=== PATIENT | male | born 1945 ===

== ENCOUNTER 2016-11-24 06:45 | Day surgery (SDC) | payer MEDICARE, MEDICAID ==
[2016-11-13 09:28] VITALS: BMI 25.0
[2016-11-24] MEDS ORDERED: ceFAZolin IV 1 gm in Dextrose 0 GM/0 ML BAG IVPB ONE (07:36)
[2016-11-24] MEDS ORDERED: Bupivacaine HCl 0.25% PF (10 ml) Inj ONE (07:36)
[2016-11-24] MEDS ORDERED: Lidocaine 1% Inj (20ml) ONE (07:37)
[2016-11-24] MEDS ORDERED: Bupivacaine/Epi 0.25%-1:200,000 10 ml PF inj IJ ONE (07:37)
[2016-11-24] MEDS ORDERED: Lactated Ringer's 1,000 ML IV ONE ×2 (08:25→11:08)
[2016-11-24] MEDS ORDERED: Propofol 10 mg/ml Inj (20 ML) ONE (08:32)
[2016-11-24] MEDS ORDERED: Midazolam 2 MG/2 ML VIAL ONE (08:32)
[2016-11-24] MEDS ORDERED: ceFAZolin IV 2 gm in Dextrose 1 GM/50 ML BAG IVPB ONE (08:34)
[2016-11-24] MEDS ORDERED: Rocuronium 10 mg/ml (5 ml) ONE (08:34)
[2016-11-24] MEDS ORDERED: Lidocaine Hydrochloride 5 ML INJ ONE (08:35)
[2016-11-24] MEDS ORDERED: ePHEDrine 50 mg/ml Inj ONE (09:28)
[2016-11-24] MEDS ORDERED: Neostigmine Methylsulfate 3mg/3ml Syringe IV ONE (09:46)
[2016-11-24] MEDS ORDERED: HYDROmorphone 0.5 mg/0.5 ml ISec IVP PRN (11:30)
--- NOTE | 2016-11-24 11:52 | PCM.SURG1 ---
Surgeon's Initial Post Op Note - Surgeon's Notes Surgeon: Luca [employer]: [place] PGY2 Type of Anesthesia: General Endo Pre-Operative Diagnosis: Multiple lipomas B/L UE Operative Findings: 34 Lipomas B/L UE Post-Operative Diagnosis: same Operation Performed: excision of lipomas Specimen/Specimens Removed: lipomas Estimated Blood Loss: EBL {In ML}: 50 Blood Products Given: N/A Drains Used: No Drains Post-Op Condition: Good Date of Surgery/Procedure: 11/24/16 Time of Surgery/Procedure: 11:52
[2016-11-24] MEDS ORDERED: Oxycodone/Acetaminophen 5/325 mg Tab PO PRN (11:55)
[2016-11-24 15:06] VITALS: BP 152/75; PULSE 85; RESP 16; TEMP 97.1; O2SAT 100
--- NOTE | 2016-11-25 17:27 | OP ---
PROCEDURE DATE: 11/24/2016 PREOPERATIVE DIAGNOSIS: Multiple lipomas of upper extremity. POSTOPERATIVE DIAGNOSIS: Multiple lipomas of bilateral upper extremity; 34 lipomas, 22 on right side and 12 on the left side. PROCEDURES: Excision of multiple lipomas of bilateral upper extremities, 34 total; 22 on the right side and 12 on the left side. 1. Excision of the lipomas of the right forearm, anterior upper 2x2 cm 2. Excision of the lipoma Right forearm anterior lower 2x2 cm 3. Excision of the lipoma Right forearm lateral lower one. 2x2 cm 4. Excision of the lipoma Right forearm lateral upper. 4x3 cm 5. Excision of the lipoma Right forearm posterior lower, 1. 2x2 cm 6. Excision of the lipoma Right forearm posterior medial, 1. 2x2 cm 7. Excision of the lipoma Right forearm lateral lower, 2. 4x3 cm 8. Excision of the lipoma Right forearm posterior upper, 1. 2x2 cm 9. Excision of the lipomaRight elbow lateral. 3x3 cm 10. Excision of the lipoma Right forearm lateral. 2x2 cm 11. Excision of the lipoma Right forearm posterior lower, 2. 2x2 cm 12. Excision of the lipoma Right forearm posterior medial, 2. 2x2 cm 13. Excision of the lipoma Right forearm posterior upper, 2. 2x2 cm 14. Excision of the lipoma Right forearm posterior medial, 3. 2x2 cm 15. Excision of the lipoma Right forearm posterior medial, 4. 2x2 cm 16. Excision of the lipoma Right forearm posterior lower, 3. 2x3 cm 17. Excision of the lipoma Right forearm posterior upper, 3. 2x2 cm 18. Excision of the lipoma Right forearm posterior medial, 5. 3x3 cm 19. Excision of the lipoma Right elbow medial, 1. 4x3 cm 20. Excision of the lipoma Right elbow medial, 2. 3x3 cm 21. Excision of the lipoma Right elbow medial, 3. 4x4 cm 22. Excision of the lipoma Right elbow medial, 4. 3x2 cm On the left side is: 1. Excision of the lipoma Left forearm medial lower. 2x2 cm 2. Excision of the lipoma Left forearm medial upper. 2x2 cm 3. Excision of the lipoma Left forearm posterior. 2x3 cm 4. Excision of the lipoma Left forearm posterior, 1. 2x2 cm 5. Excision of the lipoma Left elbow medial, 1. 4x3 cm 6. Excision of the lipoma Left elbow medial, 2. 3x3 cm 7. Excision of the lipoma Left forearm lateral lower. 2x2 cm 8. Excision of the lipoma Left forearm lateral upper. 2x2 cm 9. Excision of the lipoma Left forearm medial. 3x4 cm 10. Excision of the lipoma Left arm anterior. 2x2 cm 11. Excision of the lipoma Left arm posterior lower. 4x3 cm 12. Excision of the lipoma Left elbow lateral upper. 3x3 cm SURGEON: Dr. Dandy Segovia. SCIENTIFIC ILLUSTRATOR: Javed Escobedo, PGY-1 resident. ANESTHESIA: General endotracheal tube anesthesia. ESTIMATED BLOOD LOSS: Around 50 mL. DRAINS: None. PATHOLOGY: All the lipomas were sent separately. There were 34 samples. COMPLICATIONS: None. INTRAOPERATIVE FINDINGS: The patient had multiple lipomas of the bilateral upper extremities. INTRAOPERATIVE STEPS: This 71-year-old male was diagnosed with multiple lipomas of upper extremities and patient was symptomatic from the lipomas and had pain while working, and patient was consented for the excision of the lipomas of the upper extremities bilaterally. Brought to the OR, placed supine on the operating table. After induction of the anesthesia, both upper extremities were prepped and draped in a usual sterile fashion and the posterior right-sided lipomas were excised. The right forearm, anterior multiple, lateral multiple, posterior multiple, right elbow multiple lipomas were excised and they were all sent separately. There was a total of 22 lipomas on the right side and all the wounds were irrigated out. All the wounds were closed in 2 layers, subcutaneous with a 3-0 Vicryl, skin with a 4-0 Monocryl, and now the left-sided lipomas were excised. The left forearm medial, left forearm posterior, left elbow multiple lipomas, and the left arm multiple lipomas were excised. After multiple incisions, patient had a total of 12 lipomas on the left side, and all the wounds were irrigated and wounds were closed in 2 layers, the subcutaneous with a 2-0 Vicryl, skin with a 4-0 Monocryl, and dry sterile dressing was applied. The patient tolerated the procedure well. Count of instruments and gauze was correct. There was no apparent complication. The patient was extubated in the OR, sent to the postanesthesia care unit in stable condition. Dandy Segovia MD cc: [id number] TT: 11/25/2016 17:25:50 dn MTDD
== END 2016-11-24 15:10 | disposition home or self-care (01) ==
LOC: C.SDS 06:45
PROVIDERS: ATTEND Surgery Surgical Critical Care
DX: D17.22 Benign lipomatous neoplasm of skin and subcutaneous tissue of left arm (principal); D17.21 Benign lipomatous neoplasm of skin and subcutaneous tissue of right arm; L72.0 Epidermal cyst
CPT/HCPCS: 11406; 88304; J0690; J1100; J1170; J2250; J2405; J2704; J2710; J2765; J3010; J7120

== ENCOUNTER 2018-10-23 12:25 | Observation (INO) | payer MEDICARE, MEDICAID ==
[2018-10-23 12:25] VITALS: BMI 25.0
[2018-10-23] MEDS ORDERED: Sodium Chloride 0.9% 500 ML IV ONE ×2 (12:51→13:02)
--- NOTE | 2018-10-23 12:58 | C.PDOC ---
History Of Present Illness 73 year old male with PMHx of HTN and gastritis was sent by Dr. Funes to rule out appendicitis. The patient reports lower abdominal pain radiating to the lower back for 2 days associated with chills and constipation. Denies nausea, vomiting, diarrhea, and any other associated symptoms. Time Seen by Provider: 10/23/18 12:37 Chief Complaint (Nursing): Abdominal Pain History Per: Patient History/Exam Limitations: no limitations Onset/Duration Of Symptoms: Days (x2) Current Symptoms Are (Timing): Still Present Location Of Pain/Discomfort: RLQ, LLQ, Other (umbilical region.) Radiation Of Pain To:: Back Quality Of Discomfort: "Pain" Associated Symptoms: Chills, Constipation. denies: Nausea, Vomiting, Diarrhea Exacerbating Factors: Movement Alleviating Factors: None Recent travel outside of the [place]: No Past Medical History Reviewed: Historical Data, Nursing Documentation, Vital Signs Vital Signs: Last Vital Signs Temp 97.8 F 10/23/18 12:42 Pulse 90 10/23/18 12:42 Resp 18 10/23/18 12:42 BP 165/88 H 10/23/18 12:42 Pulse Ox 100 10/23/18 12:42 - Medical History PMH: HTN Denies: Chronic Kidney Disease Surgical History: Endoscopy - [facility] Procedures EXCISION OF LOWER ESOPHAGUS, ENDO, DIAGN (05/18/16) EXCISION OF MIDDLE ESOPHAGUS, ENDO, DIAGN (05/18/16) EXCISION OF STOMACH, ENDO, DIAGN (05/18/16) Family History: States: Unknown Family Hx - Social History Hx Alcohol Use: No Hx Substance Use: No - Immunization History Hx Tetanus Toxoid Vaccination: No Hx Influenza Vaccination: Yes (05/2016) Hx Pneumococcal Vaccination: No Review Of Systems Except As Marked, All Systems Reviewed And Found Negative. Constitutional: Positive for: Chills Gastrointestinal: Positive for: Abdominal Pain, Constipation. Negative for: Nausea, Vomiting, Diarrhea Musculoskeletal: Positive for: Back Pain (lower. ) Physical Exam - Physical Exam Appears: Non-toxic, No Acute Distress Skin: Warm, Dry Eye(s): bilateral: Normal Inspection Oral Mucosa: Moist Neck: Normal ROM, Supple Chest: Symmetrical, No Deformity Cardiovascular: Rhythm Regular, No Murmur Respiratory: Normal Breath Sounds, No Rales, No Rhonchi, No Wheezing Gastrointestinal/Abdominal: Soft, Tenderness (to lower left, umbilical, and lower right abdomen (worse).) Extremity: Bilateral: Atraumatic, Normal Color And Temperature, Normal ROM Neurological/Psych: Oriented x3, Normal Speech, Normal Cognition ED Course And Treatment - Laboratory Results Result Diagrams: 10/23/18 12:55 10/23/18 12:55 O2 Sat by Pulse Oximetry: 100 (RA) Pulse Ox Interpretation: Normal - Other Rad Obstructive Series X-Ray: Viewed By Me, Read By Radiologist Interpretation: FINDINGS: CHEST: Lungs: Clear. Cardiovascular: Normal size heart. No pulmonary vascular congestion. No aortic atherosclerotic calcification present. Pleura: No pleural fluid. No pneumothorax. Other findings: None. ABDOMEN AND PELVIS: Bowel: Mild constipation noted, otherwise unremarkable bowel gas pattern. No evidence of mechanical obstruction. Free air: None. Bones: Unremarkable. Other findings: None. IMPRESSION: Mild constipation noted, otherwise unremarkable radiographs of chest and abdomen. No evidence of mechanical bowel obstruction. - CT Scan/US CT ABD & Pelvis Other Rad Studies (CT/US): Interpreted By Me, Read By Radiologist CT/US Interpretation: FINDINGS: LOWER THORAX: Unremarkable. LIVER: Hepatic steatosis is noted. GALLBLADDER AND BILE DUCTS: Unremarkable. PANCREAS: Unremarkable. No gross lesion or ductal dilatation. SPLEEN: Unremarkable. AD RENALS: Unremarkable. No mass. KIDNEYS AND URETERS: Unremarkable. No hydronephrosis. No solid mass. VASCULATURE: Unremarkable. No aortic aneurysm. Small foci of atherosclerotic calcification in the abdominal aorta and iliac arteries noted. BOWEL: Unremarkable. No obstruction. No gross mural t hickening. APPENDIX: The appendix is enlarged demonstrate diffuse thick wall and surrounding with market inflammatory changes consistent with acute appendicitis. No evidence of perforation or abscess formation. PERITONEUM: Unremarkable. No free fluid. No free air. LYMPH NODES: Unremarkable. No enlarged lymph nodes. BLADDER: Unremarkable. REPRODUCTIVE: Unremarkable. BONES: No acute fracture. OTHER FINDINGS: None. IMPRESSION: Findings consistent with acute appendicitis. No evidence of free air or abscess formation. Medical Decision Making Medical Decision Making: Initial Plan: -CT ABD & Pelvis w/ IV contrast -Blood sent. -Obstructive series -Urinalysis Progress/Update: Spoke with Dr. Funes. Spoke with Luca who was informed that the pt has acute appendicitis. Pt to be prepped and bank president informed. Dr. Segovia requests pt is admitted to medical service. Disposition Discussed With : Ale Funes - Disposition Disposition: HOSPITALIZED Disposition Time: 15:36 Condition: GUARDED Forms: [facility] (Japanese) - Clinical Impression Clinical Impression: Acute appendicitis - Scribe Statement The provider has reviewed the documentation as recorded by the Scribe (Salma Kenney) Provider Attestation: All medical record entries made by the Scribe were at my direction and personally dictated by me. I have reviewed the chart and agree that the record accurately reflects my personal performance of the history, physical exam, medical decision making, and the department course for this patient. I have also personally directed, reviewed, and agree with the discharge instructions and disposition. Decision To Admit - Pt Status Changed To: Hospital Disposition Of: Observation - . Bed Request Type: Regular Patient Diagnosis: Acute appendicitis
[2018-10-23 12:59] LABS: BASO # 0.1 K/uL (0.0-0.2); BASO % 0.6 % (0.0-2.0); EOS # 0.1 K/uL (0.0-0.7); EOS % 0.8 % (0.0-4.0); HEMOGLOBIN 14.4 g/dL (12.0-18.0); LYMPH # 1.6 K/uL (1.0-4.3); LYMPH % 16.7 % (20.0-40.0); MEAN CORPUSCULAR HEMOGLOBIN 30.7 pg (27.0-31.0); MEAN CORPUSCULAR HGB CONC 33.5 g/dL (33.0-37.0); MEAN PLATELET VOLUME 8.2 fL (7.2-11.7); MONO # 0.9 K/uL (0.0-0.8); NEUT # 7.2 K/uL (1.8-7.0); NEUT % 72.9 % (50.0-75.0); RBC 4.7 Mil/uL (4.40-5.90); RED CELL DISTRIBUTION WIDTH 13.9 % (11.5-14.5)
[2018-10-23] MEDS ORDERED: Iohexol 240 (50 ml) ONE (13:01)
[2018-10-23 13:02] LABS: MEAN CELL VOLUME 91.5 fL (80.0-94.0); URINE BILIRUBIN NEGATIVE (NEGATIVE); URINE BLOOD NEGATIVE (NEGATIVE); URINE CLARITY Clear (Clear); URINE COLOR Yellow (YELLOW); URINE GLUCOSE (UA) NORMAL (Normal); URINE LEUKOCYTE ESTERASE NEG Leu/uL (Negative); URINE PROTEIN NEGATIVE (NEGATIVE); URINE UROBILINOGEN NORMAL mg/dL (0.2-1.0); WHITE BLOOD COUNT 9.8 K/uL (4.8-10.8)
[2018-10-23 13:14] LABS: ALB/GLOB RATIO 1.4 (1.0-2.1); ALBUMIN 4.5 g/dL (3.5-5.0); ALT/SGPT 18 U/L (21-72); AST/SGOT 32 U/L (17-59); BLOOD UREA NITROGEN 14 mg/dL (9-20); CALCIUM 9.2 mg/dl (8.6-10.4); GFR NON-AFRICAN AMERICAN > 60; LIPASE 81 U/L (23-300)
[2018-10-23 13:24] LABS: B-TYPE NATRIURETIC PEPTIDE 66.2 pg/mL (0-900)
[2018-10-23] MEDS ORDERED: Iodixanol 320 mg/ml 150 ml Bottle IV ONE (14:19)
--- NOTE | 2018-10-23 14:28 | RAD ---
Date of service: 10/23/2018 PROCEDURE: Radiographs of the chest and abdomen (obstructive series) HISTORY: abd pain COMPARISON: No prior. TECHNIQUE: AP radiograph of the chest, with upright and supine radiographs of the abdomen. 3 views obtained. FINDINGS: CHEST: Lungs: Clear. Cardiovascular: Normal size heart. No pulmonary vascular congestion. No aortic atherosclerotic calcification present Pleura: No pleural fluid. No pneumothorax. Other findings: None. ABDOMEN AND PELVIS: Bowel: Mild constipation noted, otherwise unremarkable bowel gas pattern. No evidence of mechanical obstruction. Free air: None. Bones: Unremarkable. Other findings: None. IMPRESSION: Mild constipation noted, otherwise unremarkable radiographs of chest and abdomen. No evidence of mechanical bowel obstruction.
--- NOTE | 2018-10-23 15:32 | CT ---
Date of service: 10/23/2018 PROCEDURE: CT Abdomen and Pelvis with contrast HISTORY: abd pain COMPARISON: None. TECHNIQUE: Contrast dose: 100 mL of Visipaque 320 intravenously. Axial and reformatted coronal and sagittal CT images of the abdomen and pelvis were obtained after IV and oral contrast administration. Radiation dose: Total exam DLP = 568.41 mGy-cm. This CT exam was performed using one or more of the following dose reduction techniques: Automated exposure control, adjustment of the mA and/or kV according to patient size, and/or use of iterative reconstruction technique. FINDINGS: LOWER THORAX: Unremarkable. LIVER: Hepatic steatosis is noted. GALLBLADDER AND BILE DUCTS: Unremarkable. PANCREAS: Unremarkable. No gross lesion or ductal dilatation. SPLEEN: Unremarkable. ADRENALS: Unremarkable. No mass. KIDNEYS AND URETERS: Unremarkable. No hydronephrosis. No solid mass. VASCULATURE: Unremarkable. No aortic aneurysm. Small foci of atherosclerotic calcification in the abdominal aorta and iliac arteries noted. BOWEL: Unremarkable. No obstruction. No gross mural thickening. APPENDIX: The appendix is enlarged demonstrate diffuse thick wall and surrounding with market inflammatory changes consistent with acute appendicitis. No evidence of perforation or abscess formation. PERITONEUM: Unremarkable. No free fluid. No free air. LYMPH NODES: Unremarkable. No enlarged lymph nodes. BLADDER: Unremarkable. REPRODUCTIVE: Unremarkable. BONES: No acute fracture. OTHER FINDINGS: None. IMPRESSION: Findings consistent with acute appendicitis. No evidence of free air or abscess formation.
--- NOTE | 2018-10-23 15:51 | CP.PCM.CON ---
<Cristóbal Allen - Last Filed: 10/23/18 16:37> History of Present Illness - History of Present Illness History of Present Illness: General Surgery Note for Dr. Segovia Reason for consult: Acute appendicitis 73 M with PMH of HTN and GERD presents to [facility], [place] for complaint of lower abdominal pain. Patient was seen and evaluated in the ED. Patient state sthat abd pain started 2 days ago. He states the pain began in the lower abdomen then migrated to RLQ. He report sudden onset and states it has gotten progressively worse. Admits to associated nausea and anorexia but denies fever/chills and diarrhea. He describes pain as severe, sharp and constant. Eating/drinking aggravates symptoms while nothing alleviates them. Denies cp, SOB, numbness/tingling, incontinence, urinary symptoms. PMH: HTN, GERD PSH: Lipoma removals bilateral UEs ALL: NKDA Review of Systems - Review of Systems All systems: reviewed and no additional remarkable complaints except (as per HPI) Past Patient History - Infectious Disease Hx of Infectious Diseases: None - Past Medical History & Family History Past Medical History?: Yes - Past Social History Smoking Status: Never Smoked - CARDIAC Hx Hypertension: Yes - PULMONARY Hx Respiratory Disorders: No - NEUROLOGICAL Hx Neurological Disorder: No - HEENT Hx HEENT Problems: No - RENAL Hx Chronic Kidney Disease: No - ENDOCRINE/METABOLIC Hx Endocrine Disorders: No - HEMATOLOGICAL/ONCOLOGICAL Hx Blood Disorders: No - INTEGUMENTARY Hx Dermatological Problems: Yes Other/Comment: HX: LIPOMAS - MUSCULOSKELETAL/RHEUMATOLOGICAL Hx Musculoskeletal Disorders: No Hx Falls: No - GASTROINTESTINAL Hx Gastrointestinal Disorders: Yes Hx Gastroesophageal Reflux: Yes - GENITOURINARY/GYNECOLOGICAL Hx Genitourinary Disorders: No - PSYCHIATRIC Hx Substance Use: No - SURGICAL HISTORY Other/Comment: HX: LIPOMA EXCISIONS - ANESTHESIA Hx Anesthesia: Yes Meds Allergies/Adverse Reactions: Allergies Allergy/AdvReac Type Severity Reaction Status Date / Time No Known Allergies Allergy Verified 06/16/16 08:20 Physical Exam - Constitutional Appears: Non-toxic, No Acute Distress - Head Exam Head Exam: ATRAUMATIC, NORMOCEPHALIC - Eye Exam Eye Exam: EOMI, Normal appearance Pupil Exam: PERRL - ENT Exam ENT Exam: Mucous Membranes Moist - Neck Exam Neck exam: Positive for: Full Rom - Respiratory Exam Respiratory Exam: NORMAL BREATHING PATTERN - Cardiovascular Exam Cardiovascular Exam: REGULAR RHYTHM - GI/Abdominal Exam GI & Abdominal Exam: Distended (mild), Guarding (voluntary), Normal Bowel Sounds, Soft, Tenderness (RLQ). absent: Firm, Hernia, Mass, Rebound, Rigid Additional comments: +mcburney's point +rovsing sign - Rectal Exam Rectal Exam: Deferred - Extremities Exam Extremities exam: Positive for: normal capillary refill, pedal pulses present. Negative for: calf tenderness - Back Exam Back exam: absent: CVA tenderness (L), CVA tenderness (R) - Neurological Exam Neurological exam: Alert, CN II-XII Intact, Normal Gait, Oriented x3 - Psychiatric Exam Psychiatric exam: Normal Affect, Normal Mood - Skin Skin Exam: Dry, Intact, Normal Color, Warm Results - Vital Signs Recent Vital Signs: Last Vital Signs Temp 99.8 F H 10/23/18 14:04 Pulse 90 10/23/18 12:42 Resp 18 10/23/18 12:42 BP 165/88 H 10/23/18 12:42 Pulse Ox 100 10/23/18 15:47 - Labs Result Diagrams: 10/23/18 12:55 10/23/18 12:55 Labs: Laboratory Results - last 24 hr 10/23/18 10/23/18 10/23/18 12:55 12:55 12:55 WBC 9.8 D RBC 4.70 Hgb 14.4 Hct 43.0 MCV 91.5 D MCH 30.7 MCHC 33.5 RDW 13.9 Plt Count 192 MPV 8.2 Neut % (Auto) 72.9 Lymph % (Auto) 16.7 L [place] % (Auto) 9.0 Eos % (Auto) 0.8 Baso % (Auto) 0.6 Neut # (Auto) 7.2 H Lymph # (Auto) 1.6 [place] # (Auto) 0.9 H Eos # (Auto) 0.1 Baso # (Auto) 0.1 Sodium 138 Potassium 4.3 Chloride 103 Carbon Dioxide 28 Anion Gap 11 BUN 14 Creatinine 1.0 Est GFR ( Amer) > 60 Est GFR (Non-Af Amer) > 60 Random Glucose 105 Calcium 9.2 Total Bilirubin 0.7 AST 32 ALT 18 L D Alkaline Phosphatase 110 Troponin I < 0.0120 NT-Pro-B Natriuret Pep 66.2 Total Protein 7.6 Albumin 4.5 Globulin 3.1 Albumin/Globulin Ratio 1.4 Lipase 81 Urine Color Yellow Urine Clarity Clear Urine pH 7.0 Ur Specific [place] 1.016 Urine Protein Negative Urine Glucose (UA) Normal Urine Ketones Negative Urine Blood Negative Urine Nitrate Negative Urine Bilirubin Negative Urine Urobilinogen Normal Ur Leukocyte Esterase Neg Urine RBC (Auto) < 1 Assessment & Plan - Assessment and Plan (Free Text) Assessment: 73 M who presents with Acute appendicitis Plan: -NPO -IVF -IV abx -Pain control -Anti-emetics PRN -Plan for laparoscopic appendectomy in OR today -Discussed with Dr. Luca Allen PGY2 - Date & Time Date: 10/23/18 Time: 16:42 <Dandy Segovia - Last Filed: 10/24/18 18:46> Meds - Medications Medications: Current Medications Acetaminophen (Tylenol 325mg Tab) 650 mg PO Q6 PRN PRN Reason: Fever >100.4 F Enalapril Maleate (Vasotec) 10 mg PO DAILY [facility] Last Admin: 10/24/18 09:47 Dose: 10 mg Lactated Ringer's (Lactated Ringer's) 1,000 mls @ 100 mls/hr IV .Q10H [facility] Last Admin: 10/24/18 12:53 Dose: 100 mls/hr Piperacillin Sod/Tazobactam Sod (Zosyn 3.375 Gm Iv Premix) 3.375 gm in 50 mls @ 100 mls/hr IVPB Q6H [facility]; Protocol Last Admin: 10/24/18 15:49 Dose: 100 mls/hr Morphine Sulfate (Morphine) 2 mg IVP Q4 PRN PRN Reason: Pain, severe (8-10) Last Admin: 10/24/18 16:21 Dose: 2 mg Ondansetron HCl (Zofran Inj) 4 mg IVP Q6H PRN PRN Reason: Nausea/Vomiting Last Admin: 10/24/18 05:36 Dose: 4 mg Oxycodone HCl (Oxycodone Immediate Release Tab) 5 mg PO Q6 PRN PRN Reason: Pain, moderate (4-7) Last Admin: 10/24/18 07:01 Dose: 5 mg Pantoprazole Sodium (Protonix Ec Tab) 40 mg PO DAILY [facility] Last Admin: 10/24/18 09:47 Dose: 40 mg Tamsulosin HCl (Flomax) 0.4 mg PO DAILY [facility] Last Admin: 10/24/18 14:15 Dose: 0.4 mg Results - Vital Signs Recent Vital Signs: Last Vital Signs Temp 99.7 F H 10/24/18 16:22 Pulse 93 H 10/24/18 16:22 Resp 18 10/24/18 16:22 BP 137/82 10/24/18 16:22 Pulse Ox 95 10/24/18 16:22 - Labs Result Diagrams: 10/24/18 14:52 10/24/18 15:20 Labs: Laboratory Results - last 24 hr 10/24/18 10/24/18 14:52 15:20 WBC 8.4 RBC 4.46 Hgb 13.8 Hct 41.4 MCV 92.8 MCH 31.0 MCHC 33.4 RDW 14.2 Plt Count 162 MPV 7.9 Neut % (Auto) 73.4 Lymph % (Auto) 14.6 L [place] % (Auto) 10.7 H Eos % (Auto) 0.9 Baso % (Auto) 0.4 Neut # (Auto) 6.2 Lymph # (Auto) 1.2 [place] # (Auto) 0.9 H Eos # (Auto) 0.1 Baso # (Auto) 0.0 Sodium 138 Potassium 4.1 Chloride 103 Carbon Dioxide 26 Anion Gap 13 BUN 9 Creatinine 1.2 Est GFR ( Amer) > 60 Est GFR (Non-Af Amer) 60 Random Glucose 118 H Calcium 8.7 Total Bilirubin 1.0 AST 28 ALT 17 L Alkaline Phosphatase 75 Total Protein 6.7 Albumin 3.8 Globulin 2.9 Albumin/Globulin Ratio 1.3 Attending/Attestation - Attestation I have personally seen and examined this patient.: Yes I have fully participated in the care of the patient.: Yes I have reviewed all pertinent clinical information: Yes Notes (Text): Pt was seen and examined at bedside Agree with above note and assessment Pt with RLQ Pain and nausea Abdomen: Soft, RLQ tenderness, ND Labs and Radiology reviewed Ass: Acute Appendicitis Plan : IV antibiotics OR for Lap Appendectomy possible Open Consent NPO, IVF c.w current mx Plan d.w pt in detail Risk and benefit explained in detail.
[2018-10-23] MEDS ORDERED: Sodium Chloride 0.9% 1,000 ML IV ONE (15:56)
[2018-10-23] MEDS ORDERED: Piperacillin/Tazobact 3.375 GM in Sodium Chloride 100 ML IVPB STA (16:20)
[2018-10-23] MEDS ORDERED: Piperacillin/Tazobact 3.375 gm 100 ML IVPB ONE (16:30)
[2018-10-23 16:42] LABS: INR 1.1; PROTHROMBIN TIME 12.5 SECONDS (9.7-12.2)
--- NOTE | 2018-10-23 16:45 | CP.PCM.HP ---
History of Present Illness - History of Present Illness History of Present Illness: Chief complaint: Abdominal pain 3 days duration History present illness: 73-year-old male with history of hypertension, hypercholesterolemia, multiple lipoma history of lipoma excision in the past, came to the office today, at that time he was complaining of severe abdominal pain started 3 days ago. I saw the patient's 3 days ago at that time who had mild symptoms of abdominal pain, gradually got worse, 2 days ago severe pain noted, yesterday the pain was associated with nausea. He was not able to move. The pain was localized over the entire abdomen, but mostly over the right side. He did have a chills, he also had a fever low-grade. He was taking Tylenol without any improvement. Today patient came to the office because of the worsening symptoms and unable to eat and poor appetite. On my examination patient had severe abdominal tenderness, I immediately sent him to the emergency room to rule out acute appendicitis. Patient in the emergency room had a CAT scan showing evidence of acute appendicitis, surgical evaluation was called in and I spoke to the surgeon indeed Past medical history: Hypertension, high cholesterol, multiple lipoma Allergies: No known drug allergy Personal history: Patient is a lifelong nonsmoker, nonalcoholic he denies any drug abuse. Functionally doing well Family history mother had a history of Alzheimer's dementia Patient medications reviewed Review of system: Patient has no headache or visual symptom Chills noted Patient had a low-grade fever Nausea noted. Poor intake and poor appetite noted. No diarrhea noted. Increasingly abdominal pain noted, unable to walk, patient is having guarding of the abdomen. No vomiting at this time. No leg swelling or rash On examination: Vital signs reviewed Chest bilateral good air entry no wheezing or rales noted, Regular heart sound, Patient has a severe abdominal pain involving the right lower quadrant with the severe tenderness. Rebound tenderness also noted in the right lower quadrant. And some pain and tenderness noted in the umbilical region and also referred to pain in the left lower quadrant. No pedal edema Labs reviewed EKG is normal. CT of the abdomen showed no evidence of acute appendicitis Assessment/plan: 73-year-old male with history of hypertension, high cholesterol came to the office With the symptoms of acute appendicitis. Associate with the systemic symptoms of fever and chills. Spoke to the cardiovascular surgical tech. Patient will need surgical intervention immediately. I spoke to the patient's in detail and informed patient's son. We will continue IV fluid n.p.o. antibiotic DVT GI prophylaxis surgical intervention likely today and will follow the patient Present on Admission - Present on Admission Any Indicators Present on Admission: No History of DVT/PE: No History of Uncontrolled Diabetes: No Urinary Catheter: No Decubitus Ulcer Present: No Past Patient History - Infectious Disease Hx of Infectious Diseases: None - Past Medical History & Family History Past Medical History?: Yes - Past Social History Smoking Status: Never Smoked - CARDIAC Hx Hypertension: Yes - PULMONARY Hx Respiratory Disorders: No - NEUROLOGICAL Hx Neurological Disorder: No - HEENT Hx HEENT Problems: No - RENAL Hx Chronic Kidney Disease: No - ENDOCRINE/METABOLIC Hx Endocrine Disorders: No - HEMATOLOGICAL/ONCOLOGICAL Hx Blood Disorders: No - INTEGUMENTARY Hx Dermatological Problems: Yes Other/Comment: HX: LIPOMAS - MUSCULOSKELETAL/RHEUMATOLOGICAL Hx Musculoskeletal Disorders: No Hx Falls: No - GASTROINTESTINAL Hx Gastrointestinal Disorders: Yes Hx Gastroesophageal Reflux: Yes - GENITOURINARY/GYNECOLOGICAL Hx Genitourinary Disorders: No - PSYCHIATRIC Hx Substance Use: No - SURGICAL HISTORY Other/Comment: HX: LIPOMA EXCISIONS - ANESTHESIA Hx Anesthesia: Yes Meds Allergies/Adverse Reactions: Allergies Allergy/AdvReac Type Severity Reaction Status Date / Time No Known Allergies Allergy Verified 06/16/16 08:20 Results - Vital Signs Recent Vital Signs: Last Vital Signs Temp 100.2 F H 10/23/18 16:35 Pulse 88 10/23/18 16:17 Resp 16 10/23/18 16:17 BP 172/77 H 10/23/18 16:17 Pulse Ox 100 10/23/18 16:17 - Labs Result Diagrams: 10/23/18 12:55 10/23/18 12:55 Labs: Laboratory Results - last 24 hr 10/23/18 10/23/18 10/23/18 12:55 12:55 12:55 WBC 9.8 D RBC 4.70 Hgb 14.4 Hct 43.0 MCV 91.5 D MCH 30.7 MCHC 33.5 RDW 13.9 Plt Count 192 MPV 8.2 Neut % (Auto) 72.9 Lymph % (Auto) 16.7 L [place] % (Auto) 9.0 Eos % (Auto) 0.8 Baso % (Auto) 0.6 Neut # (Auto) 7.2 H Lymph # (Auto) 1.6 [place] # (Auto) 0.9 H Eos # (Auto) 0.1 Baso # (Auto) 0.1 Sodium 138 Potassium 4.3 Chloride 103 Carbon Dioxide 28 Anion Gap 11 BUN 14 Creatinine 1.0 Est GFR ( Amer) > 60 Est GFR (Non-Af Amer) > 60 Random Glucose 105 Calcium 9.2 Total Bilirubin 0.7 AST 32 ALT 18 L D Alkaline Phosphatase 110 Troponin I < 0.0120 NT-Pro-B Natriuret Pep 66.2 Total Protein 7.6 Albumin 4.5 Globulin 3.1 Albumin/Globulin Ratio 1.4 Lipase 81 Urine Color Yellow Urine Clarity Clear Urine pH 7.0 Ur Specific [place] 1.016 Urine Protein Negative Urine Glucose (UA) Normal Urine Ketones Negative Urine Blood Negative Urine Nitrate Negative Urine Bilirubin Negative Urine Urobilinogen Normal Ur Leukocyte Esterase Neg Urine RBC (Auto) < 1
[2018-10-23] MEDS ORDERED: ceFAZolin 1 gm in NS 0 GM/0 ML BAG IVPB ONE (16:52)
[2018-10-23] MEDS ORDERED: Bupivacaine 0.25% 20 ML INJ IJ ONE (16:53)
[2018-10-23] MEDS ORDERED: Lidocaine/Epinephrine 1% 1:100000 10 ML IJ ONE (16:53)
[2018-10-23] MEDS ORDERED: Lactated Ringer's 1,000 ML IV ONE ×2 (17:15→18:45)
[2018-10-23] MEDS ORDERED: Propofol 10 mg/ml Inj (20 ML) ONE (17:30)
[2018-10-23] MEDS ORDERED: Phenylephrine 10 mg/ml Inj ONE (18:03)
[2018-10-23] MEDS ORDERED: Rocuronium 10 mg/ml (5 ml) ONE (18:03)
[2018-10-23] MEDS: HYDROmorphone 0.5 mg/0.5 ml ISec IVP PRN ×2 (19:13→19:25)
--- NOTE | 2018-10-23 19:15 | PCM.SURG1 ---
Surgeon's Initial Post Op Note - Surgeon's Notes Surgeon: Dr. Segovia Encephalographer: Alejandro PGY2 Type of Anesthesia: General Endo, Local Anesthesia Administered By: Dr. Lynn Pre-Operative Diagnosis: Acute appendicitis Operative Findings: Acute appendicitis Post-Operative Diagnosis: Acute appendicitis Operation Performed: Laparoscopic appendectomy Specimen/Specimens Removed: Appendix Estimated Blood Loss: EBL {In ML}: 20 Blood Products Given: N/A Drains Used: No Drains Post-Op Condition: Good Date of Surgery/Procedure: 10/23/18 Time of Surgery/Procedure: 19:14
[2018-10-23] MEDS: Piperacill/Tazo 3.375gm in Dex 3.375 GM/50 ML BAG IVPB SCH (21:49)
--- NOTE | 2018-10-23 23:34 | OP ---
PROCEDURE DATE: 10/23/2018 PREOPERATIVE DIAGNOSES: 1. Acute appendicitis. 2. Abdominal pain. POSTOPERATIVE DIAGNOSES: 1. Acute phlegmonous suppurative appendicitis. 2. Extensive peritoneal and inflammatory adhesions in the right lower quadrant. PROCEDURES DONE: 1. Laparoscopic appendectomy. 2. Laparoscopic extensive lysis of adhesions. 3. Laparoscopic drainage of periappendicular collection. SURGEON: Dandy Segovia MD BUDGET COORDINATOR: Cristóbal Allen DO, PGY-3 resident ANESTHESIA: General anesthesia. ESTIMATED BLOOD LOSS: Around 10 mL. DRAIN: A 19-Swiss Heber drain was placed in the pelvis and periappendicular area. COMPLICATIONS: None. INTRAOPERATIVE FINDINGS: The patient had phlegmonous acute appendicitis with large phlegmon of small bowel, appendix, and cecum as well periappendicular fat. The patient had extreme inflammation of the periappendicular area as well as the fluid collection. DESCRIPTION OF PROCEDURE: On intraoperative steps, this is a 73-year-old male who was diagnosed with acute appendicitis. The patient was consented for laparoscopic appendectomy, possible open. Brought to the OR, placed supine on the operating table. After induction of the anesthesia, the abdomen was prepped and draped in the usual sterile fashion. A supraumbilical transverse incision was made. Using open technique, peritoneal cavity was entered. Pneumo was created. Another two ports were placed, 5-mm and 12-mm ports were placed in the suprapubic and left lower quadrant. Grasper and dissector were introduced. The patient was found to have a large phlegmon and enterolysis was done. The tip of the appendix appeared to be extremely inflamed and edematous, and there was a necrosis of the tip as well as the appendix. Periappendicular dissection was done. The cecum was also mobilized partially, and the base of the appendix was identified. The extensive lysis of adhesions was done in order to reach the base of the appendix. The mesoappendix lower part was resected with the Harmonic scalpel. The base of the appendix was resected with JASON. The periappendicular fluid and the collection was drained. Perihepatic and pelvic area collection was also drained. A 19-Swiss Heber drain was placed. Proper hemostasis was achieved. The appendix was taken into an EndoCatch bag, taken out through the umbilical port site and was sent off the table for the pathology. The appendix appeared to be necrosed. The appendix was removed in pieces. After that, the pneumo was deflated. During the procedure, another 5-mm port was placed to facilitate the dissection due to the extensive edema and extensive inflammation. All the ports were taken out under vision. Pneumo was deflated. The umbilical port site was closed in two layers, the fascia with 0 Vicryl interrupted suture and skin with a 4-0 Monocryl. Dry sterile dressing was applied. The patient tolerated the procedure well. Count of instrument and gauze was correct. There was no apparent complication. The patient was extubated in OR and sent to the postanesthesia care unit in stable condition. Dandy Segovia MD MTDJarvis
[2018-10-24] MEDS: oxyCODONE 5 mg Immediate Release Tab PO PRN ×3 (02:00→19:18)
[2018-10-24] MEDS: Lactated Ringer's 1,000 ML IV SCH ×3 (02:50→22:27)
[2018-10-24] MEDS: Piperacill/Tazo 3.375gm in Dex 3.375 GM/50 ML BAG IVPB SCH ×4 (03:08→21:59)
[2018-10-24] MEDS: Pantoprazole 40 mg EC Tab PO SCH (09:47)
--- NOTE | 2018-10-24 14:46 | CP.PCM.PN ---
<Butch Billingsley - Last Filed: 10/24/18 14:41> Subjective - Date & Time of Evaluation Date of Evaluation: 10/24/18 Time of Evaluation: 14:41 - Subjective Subjective: Surgery Progress note- Dr. Segovia Patient seen and examined at bedside. Patient had urinary retention overnight. Straight cath 800cc, this AM continued urinary retention, de paz placed this AM with 800cc clear urine. Tolerating regular diet. Heber drain 25cc serosang fluid. on IVAbx Objective - Vital Signs/Intake and Output Vital Signs (last 24 hours): Temp Pulse Resp BP Pulse Ox 98.9 F 111 H 20 124/73 97 10/24/18 07:10 10/24/18 07:10 10/24/18 07:10 10/24/18 09:47 10/24/18 07:10 Intake and Output: 10/24/18 10/24/18 06:59 18:59 Output Total 25 Balance -25 - Medications Medications: Current Medications Acetaminophen (Tylenol 325mg Tab) 650 mg PO Q6 PRN PRN Reason: Fever >100.4 F Enalapril Maleate (Vasotec) 10 mg PO DAILY [facility] Last Admin: 10/24/18 09:47 Dose: 10 mg Lactated Ringer's (Lactated Ringer's) 1,000 mls @ 100 mls/hr IV .Q10H [facility] Last Admin: 10/24/18 12:53 Dose: 100 mls/hr Piperacillin Sod/Tazobactam Sod (Zosyn 3.375 Gm Iv Premix) 3.375 gm in 50 mls @ 100 mls/hr IVPB Q6H [facility]; Protocol Last Admin: 10/24/18 09:48 Dose: 100 mls/hr Morphine Sulfate (Morphine) 2 mg IVP Q4 PRN PRN Reason: Pain, severe (8-10) Last Admin: 10/24/18 12:53 Dose: 2 mg Ondansetron HCl (Zofran Inj) 4 mg IVP Q6H PRN PRN Reason: Nausea/Vomiting Last Admin: 10/24/18 05:36 Dose: 4 mg Oxycodone HCl (Oxycodone Immediate Release Tab) 5 mg PO Q6 PRN PRN Reason: Pain, moderate (4-7) Last Admin: 10/24/18 07:01 Dose: 5 mg Pantoprazole Sodium (Protonix Ec Tab) 40 mg PO DAILY [facility] Last Admin: 10/24/18 09:47 Dose: 40 mg Tamsulosin HCl (Flomax) 0.4 mg PO DAILY [facility] Last Admin: 10/24/18 14:15 Dose: 0.4 mg - Labs Labs: 10/23/18 12:55 10/23/18 12:55 PT 12.5 SECONDS (9.7-12.2) H 10/23/18 16:28 INR 1.1 10/23/18 16:28 APTT 30 SECONDS (21-34) 10/23/18 16:28 - Constitutional Appears: Non-toxic, No Acute Distress - Eye Exam Eye Exam: EOMI. absent: Scleral icterus - ENT Exam ENT Exam: Mucous Membranes Moist - Respiratory Exam Respiratory Exam: NORMAL BREATHING PATTERN. absent: Accessory Muscle Use, Respiratory Distress - Cardiovascular Exam Cardiovascular Exam: REGULAR RHYTHM. absent: Bradycardia, Tachycardia - GI/Abdominal Exam GI & Abdominal Exam: Soft, Tenderness (minimally tender in RLQ). absent: Distended, Firm, Guarding, Rigid - Exam Additional comments: De Paz in place making adequate urine - Extremities Exam Extremities Exam: absent: Calf Tenderness - Neurological Exam Neurological Exam: Alert, Awake, Oriented x3 - Skin Skin Exam: Intact, Warm Assessment and Plan - Assessment and Plan (Free Text) Assessment: 73M s/p Lap Appendectomy Plan: - monitor heber output - pain control PRN - will start flomax - encourage OOB and ambulation - c/w abx - discussed w/ [facility] <Dandy Segovia - Last Filed: 10/24/18 18:48> Objective - Vital Signs/Intake and Output Vital Signs (last 24 hours): Temp Pulse Resp BP Pulse Ox 99.7 F H 93 H 18 137/82 95 10/24/18 16:22 10/24/18 16:22 10/24/18 16:22 10/24/18 16:22 10/24/18 16:22 Intake and Output: 10/24/18 10/24/18 06:59 18:59 Intake Total 1000 Output Total 25 1540 Balance -25 -540 - Medications Medications: Current Medications Acetaminophen (Tylenol 325mg Tab) 650 mg PO Q6 PRN PRN Reason: Fever >100.4 F Enalapril Maleate (Vasotec) 10 mg PO DAILY [facility] Last Admin: 10/24/18 09:47 Dose: 10 mg Lactated Ringer's (Lactated Ringer's) 1,000 mls @ 100 mls/hr IV .Q10H [facility] Last Admin: 10/24/18 12:53 Dose: 100 mls/hr Piperacillin Sod/Tazobactam Sod (Zosyn 3.375 Gm Iv Premix) 3.375 gm in 50 mls @ 100 mls/hr IVPB Q6H [facility]; Protocol Last Admin: 10/24/18 15:49 Dose: 100 mls/hr Morphine Sulfate (Morphine) 2 mg IVP Q4 PRN PRN Reason: Pain, severe (8-10) Last Admin: 10/24/18 16:21 Dose: 2 mg Ondansetron HCl (Zofran Inj) 4 mg IVP Q6H PRN PRN Reason: Nausea/Vomiting Last Admin: 10/24/18 05:36 Dose: 4 mg Oxycodone HCl (Oxycodone Immediate Release Tab) 5 mg PO Q6 PRN PRN Reason: Pain, moderate (4-7) Last Admin: 10/24/18 07:01 Dose: 5 mg Pantoprazole Sodium (Protonix Ec Tab) 40 mg PO DAILY [facility] Last Admin: 10/24/18 09:47 Dose: 40 mg Tamsulosin HCl (Flomax) 0.4 mg PO DAILY [facility] Last Admin: 10/24/18 14:15 Dose: 0.4 mg - Labs Labs: 10/24/18 14:52 10/24/18 15:20 PT 12.5 SECONDS (9.7-12.2) H 10/23/18 16:28 INR 1.1 10/23/18 16:28 APTT 30 SECONDS (21-34) 10/23/18 16:28 Attending/Attestation - Attestation I have fully participated in the care of the patient.: Yes I have reviewed all pertinent clinical information, including history, physical exam and plan: Yes Notes (Text): Pt is improving clinically Had urinary retention last night, de paz was placed C.w IV antibiotics c.w current mx Plan d.w pt in detail
[2018-10-24 14:58] LABS: BASO % 0.4 % (0.0-2.0); EOS # 0.1 K/uL (0.0-0.7); EOS % 0.9 % (0.0-4.0); HEMOGLOBIN 13.8 g/dL (12.0-18.0); LYMPH # 1.2 K/uL (1.0-4.3); LYMPH % 14.6 % (20.0-40.0); MEAN CELL VOLUME 92.8 fL (80.0-94.0); MEAN CORPUSCULAR HGB CONC 33.4 g/dL (33.0-37.0); MEAN PLATELET VOLUME 7.9 fL (7.2-11.7); MONO # 0.9 K/uL (0.0-0.8); MONO % 10.7 % (0.0-10.0); NEUT # 6.2 K/uL (1.8-7.0); NEUT % 73.4 % (50.0-75.0); RBC 4.46 Mil/uL (4.40-5.90); RED CELL DISTRIBUTION WIDTH 14.2 % (11.5-14.5); WHITE BLOOD COUNT 8.4 K/uL (4.8-10.8)
[2018-10-24 15:25] LABS: BLOOD UREA NITROGEN 9 mg/dL (9-20); CALCIUM 8.7 mg/dl (8.6-10.4); GFR NON-AFRICAN AMERICAN 60
[2018-10-24 15:26] LABS: ALB/GLOB RATIO 1.3 (1.0-2.1); ALBUMIN 3.8 g/dL (3.5-5.0); ALT/SGPT 17 U/L (21-72); AST/SGOT 28 U/L (17-59)
--- NOTE | 2018-10-24 18:07 | CP.PCM.PN ---
Subjective - Date & Time of Evaluation Date of Evaluation: 10/24/18 Time of Evaluation: 18:06 - Subjective Subjective: Patient had a problem in urinating this morning, currently he has a Blake catheter. He also complaining of increasing abdominal pain He is tolerating the feeding no nausea no vomiting noted He has a bowel gas moving. But no BM yet On examination: Vital signs are stable otherwise. Chest good air entry Regular heart sounds noted Abdomen soft postoperative BRITANY drain noted Assessment and recommendation: 73-year-old male admitted to the hospital with a history of hypertension high cholesterol for acute appendicitis with localized peritonitis. Currently on antibiotic IV fluid. Urinary retention developed, tomorrow morning we will remove the Blake catheter. Physical therapy out of bed to chair and will follow the patient Objective - Vital Signs/Intake and Output Vital Signs (last 24 hours): Temp Pulse Resp BP Pulse Ox 99.7 F H 93 H 18 137/82 95 10/24/18 16:22 10/24/18 16:22 10/24/18 16:22 10/24/18 16:22 10/24/18 16:22 Intake and Output: 10/24/18 10/24/18 06:59 18:59 Intake Total 1000 Output Total 25 1540 Balance -25 -540 - Medications Medications: Current Medications Acetaminophen (Tylenol 325mg Tab) 650 mg PO Q6 PRN PRN Reason: Fever >100.4 F Enalapril Maleate (Vasotec) 10 mg PO DAILY [facility] Last Admin: 10/24/18 09:47 Dose: 10 mg Lactated Ringer's (Lactated Ringer's) 1,000 mls @ 100 mls/hr IV .Q10H [facility] Last Admin: 10/24/18 12:53 Dose: 100 mls/hr Piperacillin Sod/Tazobactam Sod (Zosyn 3.375 Gm Iv Premix) 3.375 gm in 50 mls @ 100 mls/hr IVPB Q6H [facility]; Protocol Last Admin: 10/24/18 15:49 Dose: 100 mls/hr Morphine Sulfate (Morphine) 2 mg IVP Q4 PRN PRN Reason: Pain, severe (8-10) Last Admin: 10/24/18 16:21 Dose: 2 mg Ondansetron HCl (Zofran Inj) 4 mg IVP Q6H PRN PRN Reason: Nausea/Vomiting Last Admin: 10/24/18 05:36 Dose: 4 mg Oxycodone HCl (Oxycodone Immediate Release Tab) 5 mg PO Q6 PRN PRN Reason: Pain, moderate (4-7) Last Admin: 10/24/18 07:01 Dose: 5 mg Pantoprazole Sodium (Protonix Ec Tab) 40 mg PO DAILY [facility] Last Admin: 10/24/18 09:47 Dose: 40 mg Tamsulosin HCl (Flomax) 0.4 mg PO DAILY [facility] Last Admin: 10/24/18 14:15 Dose: 0.4 mg - Labs Labs: 10/24/18 14:52 10/24/18 15:20 PT 12.5 SECONDS (9.7-12.2) H 10/23/18 16:28 INR 1.1 10/23/18 16:28 APTT 30 SECONDS (21-34) 10/23/18 16:28
[2018-10-25 00:46] VITALS: RESP 20
[2018-10-25] MEDS: Piperacill/Tazo 3.375gm in Dex 3.375 GM/50 ML BAG IVPB SCH ×4 (03:40→23:51)
[2018-10-25] MEDS: oxyCODONE 5 mg Immediate Release Tab PO PRN ×3 (03:44→23:51)
--- NOTE | 2018-10-25 07:12 | CP.PCM.PN ---
<Cristóbal Allen - Last Filed: 10/25/18 07:39> Subjective - Date & Time of Evaluation Date of Evaluation: 10/25/18 Time of Evaluation: 07:39 - Subjective Subjective: General Surgery Note Dr. Segovia Patient seen and examined at bedside. No acute events overnight. Tolerating regular diet. Heber drain with 115cc/24hrs serosanginous fluid. De Paz catheter still in place with appropriate urine output. Objective - Vital Signs/Intake and Output Vital Signs (last 24 hours): Temp Pulse Resp BP Pulse Ox 99.4 F 93 H 20 134/82 93 L 10/25/18 00:46 10/25/18 00:46 10/25/18 00:46 10/25/18 00:46 10/25/18 00:46 Intake and Output: 10/25/18 10/25/18 06:59 18:59 Intake Total 800 Output Total 1475 Balance -675 - Medications Medications: Current Medications Acetaminophen (Tylenol 325mg Tab) 650 mg PO Q6 PRN PRN Reason: Fever >100.4 F Enalapril Maleate (Vasotec) 10 mg PO DAILY [facility] Last Admin: 10/24/18 09:47 Dose: 10 mg Lactated Ringer's (Lactated Ringer's) 1,000 mls @ 100 mls/hr IV .Q10H [facility] Last Admin: 10/24/18 22:27 Dose: 100 mls/hr Piperacillin Sod/Tazobactam Sod (Zosyn 3.375 Gm Iv Premix) 3.375 gm in 50 mls @ 100 mls/hr IVPB Q6H [facility]; Protocol Last Admin: 10/25/18 03:40 Dose: 100 mls/hr Morphine Sulfate (Morphine) 2 mg IVP Q4 PRN PRN Reason: Pain, severe (8-10) Last Admin: 10/24/18 22:26 Dose: 2 mg Ondansetron HCl (Zofran Inj) 4 mg IVP Q6H PRN PRN Reason: Nausea/Vomiting Last Admin: 10/24/18 05:36 Dose: 4 mg Oxycodone HCl (Oxycodone Immediate Release Tab) 5 mg PO Q6 PRN PRN Reason: Pain, moderate (4-7) Last Admin: 10/25/18 03:44 Dose: 5 mg Pantoprazole Sodium (Protonix Ec Tab) 40 mg PO DAILY [facility] Last Admin: 10/24/18 09:47 Dose: 40 mg Tamsulosin HCl (Flomax) 0.4 mg PO DAILY [facility] Last Admin: 10/24/18 14:15 Dose: 0.4 mg - Labs Labs: 10/24/18 14:52 10/24/18 15:20 PT 12.5 SECONDS (9.7-12.2) H 10/23/18 16:28 INR 1.1 10/23/18 16:28 APTT 30 SECONDS (21-34) 10/23/18 16:28 - Additional Findings Additional findings: - Constitutional Appears: Non-toxic, No Acute Distress - Eye Exam Eye Exam: EOMI. absent: Scleral icterus - ENT Exam ENT Exam: Mucous Membranes Moist - Respiratory Exam Respiratory Exam: NORMAL BREATHING PATTERN. absent: Accessory Muscle Use, Respiratory Distress - Cardiovascular Exam Cardiovascular Exam: REGULAR RHYTHM. absent: Bradycardia, Tachycardia - GI/Abdominal Exam GI & Abdominal Exam: Soft, Tenderness (minimally tender in RLQ). absent: Distended, Firm, Guarding, Rigid - Exam Additional comments: De Paz in place making adequate urine - Extremities Exam Extremities Exam: absent: Calf Tenderness - Neurological Exam Neurological Exam: Alert, Awake, Oriented x3 - Skin Skin Exam: Intact, Warm Assessment and Plan - Assessment and Plan (Free Text) Assessment: 73M s/p Lap Appendectomy POD#2 Plan: - monitor heber output - pain control PRN - flomax - encourage IS, OOB and ambulation - IV abx - discussed with Dr. Luca Allen PGY2 <Dandy Segovia - Last Filed: 10/27/18 17:39> Objective - Vital Signs/Intake and Output Vital Signs (last 24 hours): Temp Pulse Resp BP Pulse Ox 98.4 F 94 H 20 132/76 99 10/26/18 16:00 10/26/18 16:00 10/26/18 16:00 10/26/18 16:00 10/26/18 16:00 - Labs Labs: 10/25/18 07:14 10/25/18 07:14 PT 12.5 SECONDS (9.7-12.2) H 10/23/18 16:28 INR 1.1 10/23/18 16:28 APTT 30 SECONDS (21-34) 10/23/18 16:28 Attending/Attestation - Attestation I have personally seen and examined this patient.: Yes I have fully participated in the care of the patient.: Yes I have reviewed all pertinent clinical information, including history, physical exam and plan: Yes Notes (Text): Pt was seen and examined at bedside Agree with above note and assessment Pt with urinary retention DC de paz Void trial c.w Flomax Plan d.w pt in detail
[2018-10-25 07:30] LABS: BASO % 0.2 % (0.0-2.0); EOS # 0.2 K/uL (0.0-0.7); EOS % 2.1 % (0.0-4.0); HEMOGLOBIN 12.9 g/dL (12.0-18.0); LYMPH # 1.6 K/uL (1.0-4.3); LYMPH % 19.9 % (20.0-40.0); MEAN CELL VOLUME 91.4 fL (80.0-94.0); MEAN CORPUSCULAR HEMOGLOBIN 31.1 pg (27.0-31.0); MEAN PLATELET VOLUME 8.4 fL (7.2-11.7); MONO # 0.7 K/uL (0.0-0.8); MONO % 9.2 % (0.0-10.0); NEUT # 5.6 K/uL (1.8-7.0); NEUT % 68.6 % (50.0-75.0); NRBC % 0.1 % (0.0-2.0); RBC 4.13 Mil/uL (4.40-5.90); RED CELL DISTRIBUTION WIDTH 14.2 % (11.5-14.5); WHITE BLOOD COUNT 8.1 K/uL (4.8-10.8)
[2018-10-25 07:50] LABS: ALB/GLOB RATIO 1.3 (1.0-2.1); ALBUMIN 3.5 g/dL (3.5-5.0); ALT/SGPT 14 U/L (21-72); AST/SGOT 36 U/L (17-59); BLOOD UREA NITROGEN 10 mg/dL (9-20); CALCIUM 8.5 mg/dl (8.6-10.4); GFR NON-AFRICAN AMERICAN 54
[2018-10-25] MEDS: Pantoprazole 40 mg EC Tab PO SCH (10:08)
[2018-10-25] MEDS ORDERED: Magnesium Sulfate 1 gm in D5W 1 GM/100 ML BAG IVPB ONE (12:14)
--- NOTE | 2018-10-25 12:18 | CP.PCM.PN ---
Subjective - Date & Time of Evaluation Date of Evaluation: 10/25/18 Time of Evaluation: 12:16 - Subjective Subjective: Patient Blake catheter was discontinued this morning. He is awake and comfortable. He was able to walk. But he has had minimal urinary output after the Blake removal. Currently on antibiotic. He is able to eat. He is able to pass gas. But no BM yet. Mild abdominal distention noted On examination: Vital signs are stable otherwise. Chest good air entry, regular HS noted Abdomen minimal distention noted. Tympanic Patient labs reviewed Low magnesium Assessment and recommendation: 73-year-old male with a history of hypertension admitted with acute appendicitis status post appendectomy. Mild postoperative urinary retention, will watch for it today. Continue with IV hydration. antibiotic and will follow the patient Objective - Vital Signs/Intake and Output Vital Signs (last 24 hours): Temp Pulse Resp BP Pulse Ox 100.7 F H 108 H 20 122/75 94 L 10/25/18 07:35 10/25/18 07:00 10/25/18 07:00 10/25/18 10:07 10/25/18 07:00 Intake and Output: 10/25/18 10/25/18 06:59 18:59 Intake Total 800 Output Total 1475 Balance -675 - Medications Medications: Current Medications Acetaminophen (Tylenol 325mg Tab) 650 mg PO Q6 PRN PRN Reason: Fever >100.4 F Last Admin: 10/25/18 07:35 Dose: 650 mg Piperacillin Sod/Tazobactam Sod (Zosyn 3.375 Gm Iv Premix) 3.375 gm in 50 mls @ 100 mls/hr IVPB Q6H [facility]; Protocol Last Admin: 10/25/18 10:08 Dose: 100 mls/hr Magnesium Sulfate/Dextrose (Magnesium Sulfate 1 Gm/100 Ml D5w) 1 gm in 100 mls @ 200 mls/hr IVPB ONCE ONE Stop: 10/25/18 12:43 Oxycodone HCl (Oxycodone Immediate Release Tab) 5 mg PO Q6 PRN PRN Reason: Pain, moderate (4-7) Last Admin: 10/25/18 03:44 Dose: 5 mg Pantoprazole Sodium (Protonix Ec Tab) 40 mg PO DAILY [facility] Last Admin: 10/25/18 10:08 Dose: 40 mg Tamsulosin HCl (Flomax) 0.4 mg PO DAILY [facility] Last Admin: 10/25/18 10:08 Dose: 0.4 mg - Labs Labs: 10/25/18 07:14 10/25/18 07:14 PT 12.5 SECONDS (9.7-12.2) H 10/23/18 16:28 INR 1.1 10/23/18 16:28 APTT 30 SECONDS (21-34) 10/23/18 16:28
--- NOTE | 2018-10-25 17:27 | RAD ---
Date of service: 10/25/2018 HISTORY: ileus COMPARISON: Obstructive series performed 10/23/18 TECHNIQUE: 1 view obtained. FINDINGS: Tubing projects over the pelvis. BOWEL: Nonspecific bowel gas pattern. Oral contrast seen within the right colon. BONES: No acute osseous abnormality is detected. OTHER FINDINGS: None. IMPRESSION: Oral contrast seen within the right colon. Nonspecific bowel gas pattern.
[2018-10-26] MEDS: Piperacill/Tazo 3.375gm in Dex 3.375 GM/50 ML BAG IVPB SCH ×3 (04:48→17:00)
[2018-10-26] MEDS: oxyCODONE 5 mg Immediate Release Tab PO PRN (04:57)
[2018-10-26 07:48] VITALS: TEMP 98.4
--- NOTE | 2018-10-26 09:39 | CP.PCM.PN ---
<Stefany Canales - Last Filed: 10/26/18 09:39> Subjective - Date & Time of Evaluation Date of Evaluation: 10/26/18 Time of Evaluation: 07:05 - Subjective Subjective: Surgery: Dr. Segovia Patient franko and examined this am at bedside. No acute events overnight per nursing. Patient now with much improved UOP. Heber with 115cc/24hrs. denies f/c, n/v Objective - Vital Signs/Intake and Output Vital Signs (last 24 hours): Temp Pulse Resp BP Pulse Ox 98.4 F 91 H 20 122/79 97 10/26/18 07:10 10/26/18 07:10 10/26/18 07:10 10/26/18 07:10 10/26/18 07:10 Intake and Output: 10/26/18 10/26/18 06:59 18:59 Intake Total 800 Output Total 1265 Balance -465 - Medications Medications: Current Medications Acetaminophen (Tylenol 325mg Tab) 650 mg PO Q6 PRN PRN Reason: Fever >100.4 F Last Admin: 10/25/18 07:35 Dose: 650 mg Piperacillin Sod/Tazobactam Sod (Zosyn 3.375 Gm Iv Premix) 3.375 gm in 50 mls @ 100 mls/hr IVPB Q6H GEN; Protocol Last Admin: 10/26/18 04:48 Dose: 100 mls/hr Oxycodone HCl (Oxycodone Immediate Release Tab) 5 mg PO Q6 PRN PRN Reason: Pain, moderate (4-7) Last Admin: 10/26/18 04:57 Dose: 5 mg Pantoprazole Sodium (Protonix Ec Tab) 40 mg PO DAILY GEN Last Admin: 10/25/18 10:08 Dose: 40 mg Tamsulosin HCl (Flomax) 0.4 mg PO Q12H GEN Last Admin: 10/25/18 23:56 Dose: 0.4 mg - Labs Labs: 10/25/18 07:14 10/25/18 07:14 PT 12.5 SECONDS (9.7-12.2) H 10/23/18 16:28 INR 1.1 10/23/18 16:28 APTT 30 SECONDS (21-34) 10/23/18 16:28 Assessment and Plan - Assessment and Plan (Free Text) Assessment: 73M s/p Lap Appendectomy POD#2 Plan: - monitor heber output - pain control PRN - continue flomax, november f/u with urology outpatient - encourage IS, OOB and ambulation - IV abx - further recs per Dr. zeferino Canales, PGY 1 <Dandy Segovia - Last Filed: 10/27/18 17:40> Objective - Vital Signs/Intake and Output Vital Signs (last 24 hours): Temp Pulse Resp BP Pulse Ox 98.4 F 94 H 20 132/76 99 10/26/18 16:00 10/26/18 16:00 10/26/18 16:00 10/26/18 16:00 10/26/18 16:00 - Labs Labs: 10/25/18 07:14 10/25/18 07:14 PT 12.5 SECONDS (9.7-12.2) H 10/23/18 16:28 INR 1.1 10/23/18 16:28 APTT 30 SECONDS (21-34) 10/23/18 16:28 Attending/Attestation - Attestation I have personally seen and examined this patient.: Yes I have fully participated in the care of the patient.: Yes I have reviewed all pertinent clinical information, including history, physical exam and plan: Yes Notes (Text): Pt was seen and examined at bedside Agree with above note and assessment Pt is voiding DC drain Pt can be DC home with flomax and urology f.u as out pt Plan d.w pt in detail Risk and benefit explained in detail.
[2018-10-26] MEDS: Pantoprazole 40 mg EC Tab PO SCH (10:12)
--- NOTE | 2018-10-26 15:23 | PCM.URO ---
Urology Progress Note - Objective Lab Studies: Reviewed (no gu change for now) Intake & Output: Intake & Output 10/25/18 10/26/18 10/26/18 18:59 06:59 18:59 Intake Total 800 450 Output Total 1265 1560 Balance -465 -1110 Intake: Intake, IV Amount 250 50 Left Hand Distal Port 250 50 Oral 550 400 Output: Drainage 90 60 Abdomen 90 60 Urine 1175 1500 Urethral (Blake) 300 Urine, Voided 875 1500 Other: # Voids Urethral (Blake) 4 Urine, Voided 2 4 # Bowel Movements 2 Vital Signs: Vital Signs - 24 hr 10/25/18 10/25/18 10/26/18 18:08 23:40 04:20 Temperature 98.4 F 98.6 F 98.3 F Pulse Rate 91 H 104 H 94 H Respiratory 20 20 20 Rate Blood Pressure 133/84 146/84 144/85 O2 Sat by Pulse 98 96 95 Oximetry 10/26/18 07:10 Temperature 98.4 F Pulse Rate 91 H Respiratory 20 Rate Blood Pressure 122/79 O2 Sat by Pulse 97 Oximetry
[2018-10-26 17:16] VITALS: BP 132/76; PULSE 94; O2SAT 99
--- NOTE | 2018-10-26 22:37 | CP.PCM.DIS ---
Provider - Provider Date of Admission: 10/23/18 15:37 Attending physician: Ale uFnes MD Consults: 10/23/18 15:38 General Surgery Consult Stat Comment: Consulting Provider: Dandy Segovia Consulting Physician: Dandy Segovia Reason for Consult: acute apendecitis 10/25/18 21:45 Urology Consult Routine Comment: Consulting Provider: John Garay Consulting Physician: John Garay Reason for Consult: Urinary retention Hospital Course - Lab Results Lab Results: Most Recent Lab Values WBC 8.1 K/uL (4.8-10.8) 10/25/18 07:14 RBC 4.13 Mil/uL (4.40-5.90) L 10/25/18 07:14 Hgb 12.9 g/dL (12.0-18.0) 10/25/18 07:14 Hct 37.8 % (35.0-51.0) 10/25/18 07:14 MCV 91.4 fL (80.0-94.0) 10/25/18 07:14 MCH 31.1 pg (27.0-31.0) H 10/25/18 07:14 MCHC 34.0 g/dL (33.0-37.0) 10/25/18 07:14 RDW 14.2 % (11.5-14.5) 10/25/18 07:14 Plt Count 163 K/uL (130-400) 10/25/18 07:14 MPV 8.4 fL (7.2-11.7) 10/25/18 07:14 Neut % (Auto) 68.6 % (50.0-75.0) 10/25/18 07:14 Lymph % (Auto) 19.9 % (20.0-40.0) L 10/25/18 07:14 [place] % (Auto) 9.2 % (0.0-10.0) 10/25/18 07:14 Eos % (Auto) 2.1 % (0.0-4.0) 10/25/18 07:14 Baso % (Auto) 0.2 % (0.0-2.0) 10/25/18 07:14 Neut # (Auto) 5.6 K/uL (1.8-7.0) 10/25/18 07:14 Lymph # (Auto) 1.6 K/uL (1.0-4.3) 10/25/18 07:14 [place] # (Auto) 0.7 K/uL (0.0-0.8) 10/25/18 07:14 Eos # (Auto) 0.2 K/uL (0.0-0.7) 10/25/18 07:14 Baso # (Auto) 0.0 K/uL (0.0-0.2) 10/25/18 07:14 PT 12.5 SECONDS (9.7-12.2) H 10/23/18 16:28 INR 1.1 10/23/18 16:28 APTT 30 SECONDS (21-34) 10/23/18 16:28 Sodium 135 mmol/L (132-148) 10/25/18 07:14 Potassium 4.0 mmol/L (3.6-5.2) 10/25/18 07:14 Chloride 101 mmol/L (98-107) 10/25/18 07:14 Carbon Dioxide 29 mmol/L (22-30) 10/25/18 07:14 Anion Gap 9 (10-20) L 10/25/18 07:14 BUN 10 mg/dL (9-20) 10/25/18 07:14 Creatinine 1.3 mg/dL (0.8-1.5) 10/25/18 07:14 Est GFR ( Amer) > 60 10/25/18 07:14 Est GFR (Non-Af Amer) 54 10/25/18 07:14 Random Glucose 126 mg/dL (75-110) H 10/25/18 07:14 Calcium 8.5 mg/dl (8.6-10.4) L 10/25/18 07:14 Phosphorus 3.3 mg/dL (2.5-4.5) 10/25/18 07:14 Magnesium 1.9 mg/dL (1.6-2.3) 10/25/18 07:14 Total Bilirubin 1.6 mg/dL (0.2-1.3) H 10/25/18 07:14 AST 36 U/L (17-59) 10/25/18 07:14 ALT 14 U/L (21-72) L 10/25/18 07:14 Alkaline Phosphatase 72 U/L (38-126) 10/25/18 07:14 Troponin I < 0.0120 ng/mL (0.00-0.120) 10/23/18 12:55 NT-Pro-B Natriuret Pep 66.2 pg/mL (0-900) 10/23/18 12:55 Total Protein 6.2 g/dL (6.3-8.3) L 10/25/18 07:14 Albumin 3.5 g/dL (3.5-5.0) 10/25/18 07:14 Globulin 2.6 gm/dL (2.2-3.9) 10/25/18 07:14 Albumin/Globulin Ratio 1.3 (1.0-2.1) 10/25/18 07:14 Lipase 81 U/L (23-300) 10/23/18 12:55 Urine Color Yellow (YELLOW) 10/23/18 12:55 Urine Clarity Clear (Clear) 10/23/18 12:55 Urine pH 7.0 (5.0-8.0) 10/23/18 12:55 Ur Specific [place] 1.016 (1.003-1.030) 10/23/18 12:55 Urine Protein Negative mg/dL (NEGATIVE) 10/23/18 12:55 Urine Glucose (UA) Normal mg/dL (Normal) 10/23/18 12:55 Urine Ketones Negative mg/dL (NEGATIVE) 10/23/18 12:55 Urine Blood Negative (NEGATIVE) 10/23/18 12:55 Urine Nitrate Negative (NEGATIVE) 10/23/18 12:55 Urine Bilirubin Negative (NEGATIVE) 10/23/18 12:55 Urine Urobilinogen Normal mg/dL (0.2-1.0) 10/23/18 12:55 Ur Leukocyte Esterase Neg Ellis/uL (Negative) 10/23/18 12:55 Urine RBC (Auto) < 1 /hpf (0-3) 10/23/18 12:55 Blood Type B NEGATIVE 10/23/18 16:00 Antibody Screen Negative 10/23/18 16:00 Discharge Exam - Head Exam Head Exam: ATRAUMATIC, NORMOCEPHALIC Discharge Plan - Discharge Medications Prescriptions: Tamsulosin [Flomax] 0.4 mg PO DAILY 30 Days cap - Follow Up Plan Condition: GUARDED Disposition: HOME/ ROUTINE Instructions: Appendicitis, Adult (DC), Tamsulosin, Appendectomy, Laparoscopic Surgery (DC) Additional Instructions: Follow up Dr. Segovia in 1 week. Call office for appointment. Can shower POD5, remove dressing. Referrals: Ale Funes MD [Staff Provider] - Dandy Segovia MD [Staff Provider] -
--- NOTE | 2018-10-27 12:02 | CON ---
DATE: 10/26/2018 REASON FOR CONSULTATION: "Urinary retention." HISTORY OF PRESENT ILLNESS: Mr. Au is a very pleasant gentleman. He is 73 years old. He is in the hospital under the care of Dr. Funes and he had an appendectomy with Dr. Segovia and postop, he was having some difficulty urinating. They needed to straight cath him. Currently, he does not have a catheter. He is just experiencing voiding difficulties that he was not experiencing before and per the Urology recommendations are . Last night, 10/25/2018, I spoke to a nurse as we requested a bladder scan. Did not show retention. The volumes were low, we actually did two. One was about 150 mL and one was about 80 mL. The patient reports even now before he came to the hospital, he was not having difficulty and now he is straining a little bit to urinate. He is having lower abdominal pain and discomfort. The stream is a little bit slow (see below plans), may all be normal postoperative. At this point, we are not planning for a Blake back in, but reportedly he had some mild irritative and obstructive clearance at his baseline, but they are mild and are within normal limits for 73 years old. No gross hematuria, no dysuria prior to now. PAST MEDICAL AND SURGICAL HISTORY: As listed in the chart, otherwise unremarkable from Urology standpoint. REVIEW OF SYSTEMS: As listed above. Otherwise noncontributory. MEDICATIONS: See the chart. PHYSICAL EXAMINATION: GENERAL: A well-nourished male, in no apparent distress. VITAL SIGNS: Within normal limits including the chart. ABDOMEN: The abdomen is relatively difficult to evaluate at this point, but did not appear to be grossly distended. RECTAL: Deferred. The remainder of the physical exam is otherwise unremarkable. LABORATORY DATA: Please see chart. DIAGNOSIS: Voiding dysfunction ASSESSMENT: In summary, a very pleasant 73-year-old gentleman with the above history. We, at this time, discussed the options. 1. The best Urology recommendation is to start Flomax. 2. We are not going to insert a Blake catheter. We will keep an eye on the residual. 3. The patient once he ambulates a little more and is having bowel movements more regularly and is back to himself, most likely his urine will resolve. The Flomax should assist this. 4. In the meantime, we should get a serum PSA. 5. We should check urine cytology, urine culture, urinalysis particularly with the dysuria. PLAN: Further plans will follow. The Urology plan as follows: 1. No Blake catheter. 2. Followup bladder scans. 3. Start Flomax immediately. 4. We will follow along. Thank you for the Urology consultation. Kash Garay MD
== END 2018-10-26 19:07 | disposition home or self-care (01) ==
LOC: C.ER 12:25 → C.9E 15:37 → C.6T 18:08
PROVIDERS: ADMIT Internal Medicine; ATTEND Internal Medicine
DX: K35.80 Unspecified acute appendicitis (principal); K59.00 Constipation, unspecified; Z82.0 Family history of epilepsy and other diseases of the nervous system; K29.70 Gastritis, unspecified, without bleeding; R33.9 Retention of urine, unspecified; E78.00 Pure hypercholesterolemia, unspecified; I10 Essential (primary) hypertension; K21.9 Gastro-esophageal reflux disease without esophagitis; K66.0 Peritoneal adhesions (postprocedural) (postinfection)
CPT/HCPCS: 36415; 44970; 74019; 74022; 74177; 80053; 81001; 83690; 83735; 83880; 84100; 84484; 85025; 85610; 85730; 86850; 86900; 87086; 88304; 99285; G0378; J1170; J2001; J2270; J2370; J2405; J2543; J2704; J3010; J3475; J7030; J7040; J7120; Q9967

== ENCOUNTER 2018-10-28 12:54 | Emergency (ER) | payer MEDICARE, MEDICAID ==
[2018-10-28 12:54] VITALS: BMI 25.0
--- NOTE | 2018-10-28 13:54 | C.PDOC ---
History Of Present Illness 73 year old male presents to ED with complaint of dysuria for the past couple of days. Patient recently had surgery for appendicitis. Patient states that she has been eating normally. Patient denies fever, nausea, and vomiting. Chief Complaint (Nursing): Male Genitourinary History Per: Patient History/Exam Limitations: no limitations Onset/Duration Of Symptoms: Days (2) Current Symptoms Are (Timing): Still Present Associated Symptoms: Urinary Symptoms (dysuria). denies: Fever, Nausea, Vomiting Past Medical History Reviewed: Historical Data, Nursing Documentation, Vital Signs Vital Signs: Last Vital Signs Temp 98 F 10/28/18 13:01 Pulse 87 10/28/18 13:01 Resp 18 10/28/18 13:01 BP 171/82 H 10/28/18 13:01 Pulse Ox 98 10/28/18 13:01 - Medical History PMH: HTN Denies: Chronic Kidney Disease Surgical History: Appendectomy, Endoscopy - [facility] Procedures EXCISION OF LOWER ESOPHAGUS, ENDO, DIAGN (05/18/16) EXCISION OF MIDDLE ESOPHAGUS, ENDO, DIAGN (05/18/16) EXCISION OF STOMACH, ENDO, DIAGN (05/18/16) Family History: States: Unknown Family Hx - Social History Hx Alcohol Use: Yes Hx Substance Use: No - Immunization History Hx Tetanus Toxoid Vaccination: No Hx Influenza Vaccination: Yes (05/2016) Hx Pneumococcal Vaccination: No Review Of Systems Constitutional: Negative for: Fever, Chills Gastrointestinal: Negative for: Nausea, Vomiting Genitourinary: Positive for: Dysuria. Negative for: Hematuria Neurological: Negative for: Weakness, Numbness Physical Exam - Physical Exam Appears: Non-toxic, No Acute Distress Skin: Normal Color, Warm, Dry Head: Atraumatic, Normacephalic Neck: Normal ROM, Supple Chest: Symmetrical, No Deformity Cardiovascular: Rhythm Regular, No Murmur Respiratory: No Accessory Muscle Use, No Rales, No Rhonchi, No Wheezing Gastrointestinal/Abdominal: Soft, No Tenderness Neurological/Psych: Oriented x3, Normal Speech, Normal Cognition ED Course And Treatment - Laboratory Results Result Diagrams: 10/28/18 14:46 10/28/18 14:46 O2 Sat by Pulse Oximetry: 98 (in RA) Medical Decision Making Medical Decision Making: Impression: 73 year old male presents to ED with complaint of dysuria for the past couple of days Plan: Labs ordered with CMP, CBC, urine culture, and UA Patient given IV fluids Re-eval: Bladder scan revealed 300cc of urine. Patient is in no acute distress and passing urine in the ED. Patient to be discharged and follow up with urologist in 2-3 days. Disposition - Disposition Referrals: Ricco Fernández, [Non-Staff] - Disposition: HOME/ ROUTINE Disposition Time: 17:10 Condition: GOOD Additional Instructions: KAI LUONG, thank you for letting us take care of you today. The emergency medical care you received today was directed at your acute symptoms. If you were prescribed any medication, please fill it and take as directed. It may take several days for your symptoms to resolve. Return to the Emergency Department if your symptoms worsen, do not improve, or if you have any other problems. Please contact your doctor or call one of the physicians/clinics you have been referred to that are listed on the Patient Visit Information form that is included in your discharge packet. Bring any paperwork you were given at dischar ge with you along with any medications you are taking to your follow up visit. Our treatment cannot replace ongoing medical care by a primary care provider outside of the emergency department. Thank you for allowing the [facility] team to be part of your care today. You had a urine culture: It will take several days for the results, if any change in treatment is needed we will contact you. Follow up with your urologist in 2-3 days for re-evaluation and further management. Continue taking your Flomax. Prescriptions: Ibuprofen [Motrin] 600 mg PO Q6 PRN #20 tab PRN Reason: Pain, Moderate (4-7) Instructions: Dysuria, Adult (DC) Forms: [employer] ([place]ian) - Clinical Impression Clinical Impression: Dysuria - Scribe Statement The provider has reviewed the documentation as recorded by the Scribe (Concepcion Llamas) All medical record entries made by the Scribe were at my direction and personally dictated by me. I have reviewed the chart and agree that the record accurately reflects my personal performance of the history, physical exam, medical decision making, and the department course for this patient. I have also personally directed, reviewed, and agree with the discharge instructions and disposition.
[2018-10-28] MEDS ORDERED: Sodium Chloride 0.9% 1,000 ML IV ONE (13:55)
[2018-10-28] MEDS ORDERED: Sodium Chloride 0.9% 1,000 ML ONE (14:25)
[2018-10-28 14:53] LABS: BASO % 0.5 % (0.0-2.0); EOS # 0.1 K/uL (0.0-0.7); EOS % 3.9 % (0.0-4.0); HEMOGLOBIN 13.6 g/dL (12.0-18.0); LYMPH # 0.9 K/uL (1.0-4.3); LYMPH % 23.9 % (20.0-40.0); MEAN CELL VOLUME 92.2 fL (80.0-94.0); MEAN CORPUSCULAR HEMOGLOBIN 30.8 pg (27.0-31.0); MEAN CORPUSCULAR HGB CONC 33.4 g/dL (33.0-37.0); MEAN PLATELET VOLUME 7.8 fL (7.2-11.7); MONO # 0.4 K/uL (0.0-0.8); MONO % 9.9 % (0.0-10.0); NEUT # 2.2 K/uL (1.8-7.0); NEUT % 61.8 % (50.0-75.0); NRBC % 0.1 % (0.0-2.0); RBC 4.42 Mil/uL (4.40-5.90); RED CELL DISTRIBUTION WIDTH 13.4 % (11.5-14.5)
[2018-10-28 14:54] LABS: WHITE BLOOD COUNT 3.6 K/uL (4.8-10.8)
[2018-10-28 15:04] LABS: ALB/GLOB RATIO 1.5 (1.0-2.1); ALBUMIN 4.1 g/dL (3.5-5.0); ALT/SGPT 20 U/L (21-72); AST/SGOT 30 U/L (17-59); BLOOD UREA NITROGEN 10 mg/dL (9-20); CALCIUM 8.9 mg/dl (8.6-10.4); GFR NON-AFRICAN AMERICAN > 60; LIPASE 74 U/L (23-300)
[2018-10-28 16:04] LABS: URINE BILIRUBIN NEGATIVE (NEGATIVE); URINE BLOOD NEGATIVE (NEGATIVE); URINE CLARITY Clear (Clear); URINE COLOR Yellow (YELLOW); URINE GLUCOSE (UA) 1+ mg/dL (Normal); URINE LEUKOCYTE ESTERASE NEG Leu/uL (Negative); URINE PROTEIN NEGATIVE (NEGATIVE); URINE UROBILINOGEN NORMAL mg/dL (0.2-1.0)
[2018-10-28 18:01] VITALS: PULSE 80
[2018-10-28 18:13] VITALS: BP 151/80; RESP 20; TEMP 98.8
[2018-10-28 18:40] VITALS: O2SAT 98
== END 2018-10-28 18:14 | disposition home or self-care (01) ==
LOC: C.ER 12:54
DX: R30.0 Dysuria (principal); I10 Essential (primary) hypertension
CPT/HCPCS: 80053; 81001; 83690; 85025; 87086; 99284; J7030